=== PATIENT | female | born 1935 | race Caucasian/White ===

== ENCOUNTER → 2017-05-21 | Outpatient (CLI) | payer MEDICARE, OTHER ==
--- NOTE | 2017-05-21 15:28 | WOMENS IMAGING REPORT ---
EXAM DESCRIPTION: 3D SCREENING MAMMO BILAT COMPLETED DATE/TIME: 05/21/2017 1:50 pm REASON FOR STUDY: ROUTINE SCREENING MAMMO Z12.31 ENCNTR SCREEN MAMMOGRAM FOR MALIGNANT NEOPLASM OF HERMES COMPARISON: Multiple since 2008 TECHNIQUE: Standard craniocaudal and mediolateral oblique views of each breast recorded using digita l acquisition and breast tomosynthesis. LIMITATIONS: None. FINDINGS: Findings present which are benign by mammographic criteria. No suspicious masses, calcifi cations or architectural distortion. Pertinent benign findings: Benign coarse dense breast parenchymal calcifications and arterial vascula r calcifications. Stable bilateral breast nodules. Read with the assistance of CAD. .[facility] - R2 Cenova Version 1.3 .[facility] Imaging - R2 Cenova Version 1.3 .[facility] Imaging - R2 Cenova Version 2.4 .[facility] - R2 Cenova Version 2.4 .[facility] - R2 Manager Cable Version 9.2 Benign mammographic findings may include one or more of the following: Smooth masses, popcorn/rim/co arse calcifications, asymmetries, post-procedure changes, and lesions with long-standing stability. IMPRESSION: BENIGN MAMMOGRAPHIC FINDINGS. BIRADS 2 BREAST DENSITY: c. The breasts are heterogeneously dense, which may obscure small masses. BIRAD: 2 BENIGN FINDING(S) RECOMMENDATION: RECOMMENDATION: ROUTINE SCREENING Please continue yearly bilateral screening tomosynthesis in May 2018 COMMENT: The patient has been notified of the results by letter per SA requirements. Additional no tification policies are in place for contacting patient with suspicious or incomplete findings. Quality ID #[id number]: The [employer] recommends an annual screening mammogram for women aged 40 years or over. This facility utilizes a reminder system to ensure that all patients receive reminder letters, and/or direct phone calls for appointments. This includes reminders for routine scr eening mammograms, diagnostic mammograms, or other Breast Imaging Interventions when appropriate. Th is patient will be placed in the appropriate reminder system. The [employer] (ACR) has developed recommendations for screening MRI of the breast s in certain patient populations, to be used in conjunction with mammography. Breast MRI surveillanc e may be appropriate for women with more than 20% lifetime risk of developing breast cancer as deter mined by genetic testing, significant family history of the disease, or history of mantle radiation f or Hodgkins Disease. ACR Practice Guidelines 2008. DBT Technology DBT is a type of tomographic mammography. With conventional mammography, overlapping breast tissue ma y make lesions difficult to detect, even with good compression. DBT uses an x-ray tube that rotates a round the breast, taking images at different angles. These images are then combined to create thin sl ices of the breast that the radiologist can view as a 3D reconstruction. The [employer]ologic unit can perform full-field digital mammograms (2D imaging); or DBT (3D imaging); or both, in a combination mode that quickly performs both the mammogram and the tomosynthesis scan while the breast is still compressed. PQRS 6045F: Fluoroscopic imaging is not utilized for breast tomosynthesis. TECHNICAL DOCUMENTATION: FINDING NUMBER: (1) ASSESSMENT: (1) JOB ID: [id number] [employer]- All Rights Reserved
== END ==
LOC: WI 11:03
PROVIDERS: ATTEND Advanced Practice Midwife
DX: Z12.31 Encounter for screening mammogram for malignant neoplasm of breast (principal)
CPT/HCPCS: 77063; G0202; 77067

== ENCOUNTER 2017-08-29 16:30 | Emergency (ER) | payer MEDICARE, OTHER ==
--- NOTE | 2017-08-29 16:39 | ER Document Report ---
ED General - General Stated Complaint: ALTERED MENTAL STATUS Time Seen by Provider: 08/29/17 16:36 Mode of Arrival: Medic Information source: Patient, Relative, Emergency Med Personnel Notes: 82-year-old female presents by EMS due to family's concerns of altered mental status. It is noted patient did not show up for Thanksgiving dinner and when family went to check on her she was not speaking appropriately. Patient herself is alert she is protecting her airway and was brought to room 10 immediately upon arrival to the emergency department TRAVEL OUTSIDE OF THE [place] IN LAST 30 DAYS: No - HPI Onset: Other - Patient has not been seen for 3 days Onset/Duration: Sudden Quality of pain: No pain Severity: Moderate Pain Level: Denies Associated symptoms: Other Exacerbated by: Denies Relieved by: Denies Similar symptoms previously: No Recently seen / treated by doctor: No - Related Data Allergies/Adverse Reactions: No Known Allergies Allergy (Unverified 07/28/12 12:05) Past Medical History - Social History Smoking Status: Never Smoker Cigarette use (# per day): No Chew tobacco use (# tins/day): No Smoking Education Provided: No Family History: Reviewed & Not Pertinent - Past Medical History Cardiac Medical History: Reports: Hx Hypertension Denies: Hx Heart Attack Pulmonary Medical History: Denies: Hx Asthma Neurological Medical History: Denies: Hx Cerebrovascular Accident, Hx Seizures GI Medical History: Denies: Hx Hepatitis, Hx Hiatal Hernia, Hx Ulcer Infectious Medical History: Denies: Hx Hepatitis Past Surgical History: Denies: Hx Hysterectomy, Hx Mastectomy, Hx Open Heart Surgery, Hx Pacemaker Review of Systems - Review of Systems Notes: REVIEW OF SYSTEMS: CONSTITUTIONAL : Denies fever, chills, or sweats. Denies recent illness. EENT: Denies eye, ear, throat, or mouth pain or symptoms. Denies nasal or sinus congestion or discharge. Denies throat, tongue, or mouth swelling or difficulty swallowing. CARDIOVASCULAR: Denies chest pain. Denies palpitations or racing or irregular heart beat. Denies ankle edema. RESPIRATORY: Denies cough, cold, or chest congestion. Denies shortness of breath, difficulty breathing, or wheezing. GASTROINTESTINAL: Denies abdominal pain or distention. Denies nausea, vomiting , or diarrhea. Denies blood in vomitus, stools, or per rectum. Denies black, tarry stools. Denies constipation. GENITOURINARY: Denies difficulty urinating, painful urination, burning, frequency, blood in urine, or discharge. FEMALE GENITOURINARY: Denies vaginal bleeding, heavy or abnormal periods, irregular periods. Denies vaginal discharge or odor. MUSCULOSKELETAL: Denies back or neck pain or stiffness. Denies joint pain or swelling. SKIN: Denies rash, lesions or sores. HEMATOLOGIC : Denies easy bruising or bleeding. LYMPHATIC: Denies swollen, enlarged glands. NEUROLOGICAL: Family notes confusion PSYCHIATRIC: Denies anxiety or stress. Denies depression, suicidal ideation, or homicidal ideation. ALL OTHER SYSTEMS REVIEWED AND NEGATIVE. PHYSICAL EXAMINATION: GENERAL: Well-appearing, well-nourished and in no acute distress. HEAD: Atraumatic, normocephalic. EYES: Pupils equal round and reactive to light, extraocular movements intact, conjunctiva are normal. ENT: Nares patent, oropharynx clear without exudates. Moist mucous membranes. NECK: Normal range of motion, supple without lymphadenopathy LUNGS: Breath sounds clear to auscultation bilaterally and equal. No wheezes rales or rhonchi. HEART: Regular rate and rhythm without murmurs ABDOMEN: Soft, nontender, nondistended abdomen. No guarding, no rebound. No masses appreciated. Female : deferred Musculoskeletal: Normal range of motion, no pitting or edema. No cyanosis. NEUROLOGICAL: Cranial nerves grossly intact. Normal speech except intermittently patient will say inappropriate words, normal gait. Normal sensory, motor exams PSYCH: Normal mood, normal affect. SKIN: Warm, Dry, normal turgor, no rashes or lesions noted. Dictation was performed using [employer] voice recognition software Physical Exam - Vital signs Vitals: Pulse Ox 97 08/29/17 16:41 Course - Re-evaluation Re-evalutation: 08/29/17 16:39 Based on EMSs concern of altered mental status, patient was immediately taken to CT where a intracranial bleed was noted, I am awaiting to bring the patient back to the room as I can further evaluate her 08/29/17 16:49 I was notified that neurology is read agreed with my initial assessment of a frontal bleed, it is noted is a left frontal parenchymal 4 x 3.5 cm bleed explained ot patient, she requests [facility] for transfer 08/29/17 16:55 [facility] paged 08/29/17 17:29 Dr Kina montalvo accepted to the ICU , requests nicardipine drip for pressure control 08/29/17 17:30 08/29/17 17:32 08/29/17 19:44 Patient has been reevaluated stable no distress will be transferred at this time - Vital Signs Vital signs: Temp Pulse Resp BP Pulse Ox 75 21 H 130/76 H 100 08/29/17 18:00 08/29/17 20:19 08/29/17 20:19 08/29/17 20:19 - Laboratory Result Diagrams: 08/29/17 16:50 08/29/17 16:50 Laboratory results interpreted by me: 08/29/17 16:50 Direct Bilirubin 0.5 H - Diagnostic Test Radiology reviewed: Image reviewed, Reports reviewed Critical Care Note - Critical Care Note Total time excluding time spent on procedures (mins): 45 Comments: 45 minutes of critical care time spent in direct contact evaluating and reevaluating the patient, treating symptoms, reviewing labs and studies and speaking with family and consultants excluding any procedures Discharge - Discharge Clinical Impression: Intraparenchymal hemorrhage of brain Condition: Stable Disposition: [facility]
--- NOTE | 2017-08-29 16:56 | RADIOLOGY REPORT (SQ) ---
EXAM DESCRIPTION: CT HEAD WITHOUT COMPLETED DATE/TIME: 08/29/2017 4:41 pm REASON FOR STUDY: STROKE-LIKE SYMPTOMS COMPARISON: None. TECHNIQUE: Axial images acquired through the brain without intravenous contrast. Images reviewed wi th bone, brain and subdural windows. Images stored on PACS. All CT scanners at this facility use dose modulation, iterative reconstruction, and/or weight based d osing when appropriate to reduce radiation dose to as low as reasonably achievable (ALARA). [facility]: Dose Right [facility]: CareDose [facility]: Dose Right [facility]: Teradose 4D [facility]: Smart Technologies RADIATION DOSE: 64 mGy. LIMITATIONS: None. FINDINGS: VENTRICLES: Normal size and contour. CEREBRUM: A left frontal white matter acute parenchymal hemorrhage is present measuring about 4 x 3.5 cm in size. No subarachnoid or intraventricular extension. Mild local mass effect, very mild left- to-right frontal midline shift. Elsewhere in the cerebrum, there are multiple areas chronic white matter disease with low attenuation in the bifrontal and biparietal white matter and bilateral basal ganglia and thalami. CEREBELLUM: No masses. No hemorrhage. No alteration of density. No evidence for acute infarction. EXTRAAXIAL SPACES: No fluid collections. No masses. ORBITS AND GLOBE: No intra- or extraconal masses. Post cataract surgery. CALVARIUM: No fracture. PARANASAL SINUSES: Small bilateral maxillary sinus mucus or serous retention cysts. SOFT TISSUES: No mass or hematoma. OTHER: No other significant finding. IMPRESSION: Acute left frontal white matter parenchymal hemorrhage 4 x 3.5 cm in size. Mild local m ass effect. No subarachnoid or intraventricular extension. EVIDENCE OF ACUTE STROKE: Yes acute hemorrhagic infarct COMMENT: Pertinent findings on the imaging study reported as a CRITICAL RESULT to Dr. Dickinson at16: 42 on 08/29/2017. Category of Critical Result: Acute left frontal parenchymal hemorrhage Quality ID # [id number]: Final reports with documentation of one or more dose reduction techniques (e.g., Au tomated exposure control, adjustment of the mA and/or kV according to patient size, use of iterative reconstruction technique) TECHNICAL DOCUMENTATION: JOB ID: [id number] [employer]- All Rights Reserved
--- NOTE | 2017-08-29 17:03 | RADIOLOGY REPORT (SQ) ---
EXAM DESCRIPTION: CHEST SINGLE VIEW COMPLETED DATE/TIME: 08/29/2017 4:42 pm REASON FOR STUDY: STROKE-LIKE SYMPTOMS COMPARISON: None. EXAM PARAMETERS: NUMBER OF VIEWS: One view. TECHNIQUE: Single frontal radiographic view of the chest acquired. RADIATION DOSE: NA LIMITATIONS: None. FINDINGS: LUNGS AND PLEURA: No opacities, masses or pneumothorax. No pleural effusion. MEDIASTINUM AND HILAR STRUCTURES: No masses. Contour normal. HEART AND VASCULAR STRUCTURES: Mild cardiomegaly. BONES: No acute findings. HARDWARE: None in the chest. OTHER: No other significant finding. IMPRESSION: Mild cardiomegaly. No acute findings TECHNICAL DOCUMENTATION: JOB ID: [id number] [employer]- All Rights Reserved
[2017-08-29 17:15] LABS: ABSOLUTE LYMPHOCYTES (AUTO) 1.3 10^3/uL (0.5-4.7); ABSOLUTE MONOCYTES (AUTO) 0.5 10^3/uL (0.1-1.4); BASOPHILS % (AUTO) 0.3 % (0-2); EOSINOPHILS % (AUTO) 0.1 % (0-6); HEMATOCRIT 36.9 % (36.0-47.0); HEMOGLOBIN 12.4 g/dL (12.0-15.5); HGB HCT DIFFERENCE 0.3; LYMPHOCYTES % (AUTO) 18.6 % (13-45); MEAN CORPUSCULAR HGB CONC 33.6 g/dL (32.0-36.0); MEAN CORPUSCULAR VOLUME 95 fl (80-97); MONOCYTES % (AUTO) 7.8 % (3-13); RED BLOOD COUNT 3.88 10^6/uL (3.72-5.28); RED CELL DISTRIBUTION WIDTH 13.5 % (11.5-14.0); SEGMENTED NEUTROPHILS % (AUTO) 73.2 % (42-78); WHITE BLOOD COUNT 6.8 10^3/uL (4.0-10.5)
[2017-08-29 17:16] LABS: PROTHROMBIN TIME 13.2 SEC (11.4-15.4)
[2017-08-29 17:17] LABS: PARTIAL THROMBOPLASTIN TIME 25.1 SEC (23.5-35.8)
[2017-08-29 17:29] LABS: ALANINE AMINOTRANSFERASE 27 U/L (9-52); ALBUMIN 4.2 g/dL (3.5-5.0); ALKALINE PHOSPHATASE 58 U/L (38-126); ANION GAP 15 (5-19); ASPARTATE AMINO TRANSFERASE 30 U/L (14-36); BILIRUBIN,DIRECT 0.5 mg/dL (0.0-0.4); BILIRUBIN,TOTAL 1.1 mg/dL (0.2-1.3); BLOOD UREA NITROGEN 15 mg/dL (7-20); CALCIUM 9.2 mg/dL (8.4-10.2); CARBON DIOXIDE 23 mmol/L (22-30); CHLORIDE 104 mmol/L (98-107); CREATINE KINASE 82 U/L (30-135); CREATININE RESULT 0.82 mg/dL (0.52-1.25); GLUCOSE 98 mg/dL (75-110); POTASSIUM 4.3 mmol/L (3.6-5.0); SODIUM 142.4 mmol/L (137-145); TOTAL PROTEIN 6.8 g/dL (6.3-8.2)
[2017-08-29] MEDS ORDERED: NICARDIPINE HCL RTU, ISO-OS 20 MG/200 ML RTUINJ IV PRN (17:31)
[2017-08-29 17:41] LABS: CREATINE KINASE MB 1.22 ng/mL (<4.55)
[2017-08-29 17:43] LABS: TROPONIN I < 0.012 ng/mL
[2017-08-29 19:37] VITALS: BP 130/76
--- NOTE | 2017-08-30 14:38 | EKG REPORT ---
SEVERITY:- ABNORMAL ECG - SINUS RHYTHM LEFT ATRIAL ABNORMALITY : Confirmed by: Ghazala Ivy MD 30-Aug-2017 14:37:42
== END 2017-08-29 19:55 | disposition short-term general hospital (02) ==
LOC: ER 16:30
DX: I61.8 Other nontraumatic intracerebral hemorrhage (principal); R41.82 Altered mental status, unspecified
CPT/HCPCS: 93005; 99291; 96365; 96366; 36415; 82553; 82962; 82550; 85025; 85610; 85730; 80053; 84484; 71010; 70450; 93010; J3490

== ENCOUNTER → 2018-11-11 | Outpatient (CLI) | payer MEDICARE, OTHER, MEDICAID ==
--- NOTE | 2018-11-11 11:41 | WOMENS IMAGING REPORT ---
EXAM DESCRIPTION: 3D SCREENING MAMMO BILAT COMPLETED DATE/TIME: 11/11/2018 11:09 am REASON FOR STUDY: ROUTINE 3D BILATERAL SCREENING,Z12.31 Z12.31 ENCNTR SCREEN MAMMOGRAM FOR MALIGNAN T NEOPLASM OF HERMES COMPARISON: [id number] TECHNIQUE: Standard craniocaudal and mediolateral oblique views of each breast recorded using digita l acquisition and breast tomosynthesis. LIMITATIONS: None. FINDINGS: Findings present which are benign by mammographic criteria. No suspicious masses, calcifi cations or architectural distortion. Pertinent benign findings: Stable calcifications. Read with the assistance of CAD. .[facility] - R2 Cenova Version 1.3 .[facility] Imaging - R2 Cenova Version 2.1 .[facility] Imaging - R2 Cenova Version 2.4 .[facility] - R2 Cenova Version 2.4 .[facility] - R2 Skip Loader Version 9.2 Benign mammographic findings may include one or more of the following: Smooth masses, popcorn/rim/co arse calcifications, asymmetries, post-procedure changes, and lesions with long-standing stability. IMPRESSION: BENIGN MAMMOGRAPHIC FINDINGS. BIRADS 2 BREAST DENSITY: b. There are scattered areas of fibroglandular density. BIRAD: 2 BENIGN FINDING(S) RECOMMENDATION: RECOMMENDATION: ROUTINE SCREENING COMMENT: The patient has been notified of the results by letter per SA requirements. Additional no tification policies are in place for contacting patient with suspicious or incomplete findings. Quality ID #[id number]: The [employer] recommends an annual screening mammogram for women aged 40 years or over. This facility utilizes a reminder system to ensure that all patients receive reminder letters, and/or direct phone calls for appointments. This includes reminders for routine scr eening mammograms, diagnostic mammograms, or other Breast Imaging Interventions when appropriate. Th is patient will be placed in the appropriate reminder system. The [employer] (ACR) has developed recommendations for screening MRI of the breast s in certain patient populations, to be used in conjunction with mammography. Breast MRI surveillanc e may be appropriate for women with more than 20% lifetime risk of developing breast cancer as deter mined by genetic testing, significant family history of the disease, or history of mantle radiation f or Hodgkins Disease. ACR Practice Guidelines 2008. DBT Technology DBT is a type of tomographic mammography. With conventional mammography, overlapping breast tissue ma y make lesions difficult to detect, even with good compression. DBT uses an x-ray tube that rotates a round the breast, taking images at different angles. These images are then combined to create thin sl ices of the breast that the radiologist can view as a 3D reconstruction. The [employer] unit can perform full-field digital mammograms (2D imaging); or DBT (3D imaging); or both, in a combination mode that quickly performs both the mammogram and the tomosynthesis scan while the breast is still compressed. PQRS 6045F: Fluoroscopic imaging is not utilized for breast tomosynthesis. TECHNICAL DOCUMENTATION: FINDING NUMBER: (1) ASSESSMENT: (1) JOB ID: [id number] [employer]- All Rights Reserved Reading location - IP/workstation name: [email or web address]
== END ==
LOC: WI 10:41
PROVIDERS: ATTEND Advanced Practice Midwife
DX: Z12.31 Encounter for screening mammogram for malignant neoplasm of breast (principal)
CPT/HCPCS: 77063; 77067

== ENCOUNTER 2019-10-05 11:04 | Inpatient (IN) | payer MEDICARE, OTHER, MEDICAID ==
[2019-10-05] MEDS ORDERED: ROCURONIUM BROMIDE INJ 50 MG/5 ML VIAL IV ONE (11:22)
[2019-10-05] MEDS ORDERED: ETOMIDATE INJ/PF 20 MG/10 ML SDV IV ONE (11:23)
[2019-10-05] MEDS ORDERED: MIDAZOLAM HCL 50 MG/100 ML RTUINJ IV PRN (11:23)
--- NOTE | 2019-10-05 11:32 | ER Document Report ---
ED Resuscitation - General Chief Complaint: Unresponsive Stated Complaint: UNRESPONSIVE Information source: Relative, Emergency Med Personnel Notes: Ms. Fernandez is a 84 yo f w/ PMH hypertension, hyperlipidemia, previous ICH 2 years ago on brought in by EMS from [facility]. Per family, they spoke to the patient yesterday evening and she was completely normal on the phone. This morning, her son went over to see her and found her unresponsive, gurgling breath sounds on the floor in the kitchen. Unknown downtime. Garrett koenig's family states that the patient had a spontaneous ICH 2 years ago on from which she recovered. She is not on known blood thinners but does take what they believe is a baby aspirin daily. Patient also recently fell and had R ankle surgery approximately 9 weeks ago and was just discharged from rehab on Saturday. TRAVEL OUTSIDE OF THE U.S. IN LAST 30 DAYS: No - Related Data Allergies/Adverse Reactions: No Known Allergies Allergy (Unverified 07/28/12 12:05) Past Medical History - Social History Smoking Status: Unknown if Ever Smoked Family History: Reviewed & Not Pertinent - Past Medical History Cardiac Medical History: Reports: Hx Hypertension Denies: Hx Heart Attack Pulmonary Medical History: Denies: Hx Asthma Neurological Medical History: Denies: Hx Cerebrovascular Accident, Hx Seizures Renal/ Medical History: Denies: Hx Peritoneal Dialysis GI Medical History: Denies: Hx Hepatitis, Hx Hiatal Hernia, Hx Ulcer Infectious Medical History: Denies: Hx Hepatitis Past Surgical History: Denies: Hx Hysterectomy, Hx Mastectomy, Hx Open Heart Surgery, Hx Pacemaker Review of Systems - Review of Systems -: Yes ROS unobtainable due to patient's medical condition Physical Exam - Vital signs Vitals: Resp 23 H 10/05/19 11:06 Interpretation: Hypertensive, Tachypneic, Other - hypothermic - General General appearance: Unresponsive In distress: Moderate - HEENT Head: Normocephalic, Atraumatic Eyes: Normal Extraocular movements intact: No Pupils: PERRL - 3mm, round and sluggishly reactive Mucous membranes: Dry - Respiratory Respiratory status: Agonal respirations - gurgling respirations, Tachypnea Breath sounds: Normal Chest palpation: Normal - Cardiovascular Rhythm: Regular Heart sounds: Normal auscultation Murmur: No - Abdominal Inspection: Normal Distension: No distension Bowel sounds: Normal Organomegaly: No organomegaly - Back Back: Normal. No: Deformity/step-off - Extremities General upper extremity: Normal inspection, Normal color General lower extremity: Normal inspection, Normal color. No: Anselmo's sign - Neurological Neuro grossly intact: No Orientation: Disoriented to person Supa Coma Scale Eye Opening: None Supa Coma Scale Verbal: None [place] Coma Scale Motor: None Supa Coma Scale Total: 3 Speech: Other - unresponsive - Skin Skin Temperature: Cool Skin Moisture: Dry Skin Color: Normal Course - Re-evaluation Re-evalutation: Patient found unresponsive in her home. Initial vitals notable for significantly elevated blood pressure, hypothermia and tachypnea. Differential diagnosis includes ICH, head trauma, hypoglycemia, ACS, sepsis 10/05/19 11:39 Patient had GCS of 3 and was unable to protect her airway therefore she was intubated with conscious sedation of rocuronium and etomidate. Please see procedure note for further notes. 10/05/19 11:49 CT shows evidence of a large intraparenchymal hemorrhage, I personally read at the bedside while the patient was in CT. I updated the patient's family regarding this. Per son, the patient also had a spontaneous ICH 2 years ago on Thanksgiving. At that point in time, she was confused and unable to move her arm. CBC does not show significant leukocytosis or left shift. H&H is stable. Initial lactate is normal at 1.3. CMP notable for elevated potassium at 5.2. Glucose is also elevated at 187. Initial troponin is negative. EKG nonischemic. 10/05/19 11:52 Natty from transfer center called to attempt possible transfer for neurosurgical evaluation. 10/05/19 11:59 Received call from radiology. Patient has R large intraparenchymal hemorrhage extending into the ventricular system. Patient also has subfalacine shift 1.2 cm. 10/05/19 11:59 Call back from transfer center. NSG paged, calling neurology too. 10/05/19 12:08 Dr. Dubois, neurology on phone, feels that this a catastrophic head bleed and recommends palliative care. Patient is not a candidate for any surgical intervention. Will discuss with family. If family insistent on transfer, will accept to ICU, but no further intervention will be offered. 10/05/19 12:29 Discussed at plan of care and recommendations by Declan Zelaya for palliation and comfort care. Discussed 10/05/19 12:32 Called clicking machine operator for cloud administrator admission. 10/05/19 12:41 Spoke to vikash Irby regarding admission to the ICU and plan of palliation. Requested that DNR form be initiated. Will do that now. 10/05/19 13:10 I personally discussed the DNR paperwork with the patient's daughter and son. I signed the paperwork in their presence. - Vital Signs Vital signs: Temp Pulse Resp BP Pulse Ox 97.9 F 84 12 164/94 H 100 10/05/19 15:10 10/05/19 15:10 10/05/19 15:10 10/05/19 15:10 10/05/19 15:10 - Laboratory Result Diagrams: 10/05/19 11:15 10/05/19 11:15 Laboratory results interpreted by me: 10/05/19 10/05/19 10/05/19 11:15 11:15 11:15 RBC 3.46 L Hgb 11.7 L Hct 34.5 L MCV 100 H MCH 33.7 H RDW 15.5 H Potassium 5.2 H Glucose 187 H AST 56 H NT-Pro-B Natriuret Pep 570 H Procedures - Intubation Orotracheal Airway evaluation: Normal anatomy, Neck immobility Mallampati Classification: Class 2 Medications: Etomidate, Other - Rocuronium Intubation method: Orotracheal Blade type: Genoveva, Other - Video-assisted Blade size: 3 Equipment used: Glidescope ETT size: 7.0 ETT secured at: Teeth ETT secured at (cm): 18 Breath Sounds after Intubation: Equal End tidal CO2 confirmed: Yes Ventilator settings: AC Tidal volume: 400 FiO2: 100 Respirations: 16 PEEP: 5 Post Intubation Xray: Yes Intubation Complications: No complications Critical Care Note - Critical Care Note Total time excluding time spent on procedures (mins): 125 - Patient was critically ill and required numerous re-evaluations. Discussion with multiple consultants including transfer center for possible transfer as well as ICU physicians here at [facility]. Discussion with specialist including neurology. Patient required antihypertensives to control her blood pressure and IV fluids. Patient also required sedation and intubation, separate from the critical care time in order to protect her airway given the significant ICH and her inability to protect her airway. Discharge - Discharge Clinical Impression: Intraparenchymal hemorrhage of brain, Unresponsive state, HTN (hypertension) Condition: Critical Disposition: ADMITTED INPATIENT Admitting Provider: Jose ([facility]) Unit Admitted: ICU
[2019-10-05 11:42] LABS: ABSOLUTE BASOPHILS # (AUTO) 0.1 10^3/uL (0.0-0.2); ABSOLUTE EOSINOPHILS # (AUTO) 0.2 10^3/uL (0.0-0.6); ABSOLUTE LYMPHOCYTES (AUTO) 1.8 10^3/uL (0.5-4.7); ABSOLUTE MONOCYTES (AUTO) 0.5 10^3/uL (0.1-1.4); ABSOLUTE NEUT (AUTO) 7.6 10^3/uL (1.7-8.2); BASOPHILS % (AUTO) 0.8 % (0-2); EOSINOPHILS % (AUTO) 1.7 % (0-6); HEMATOCRIT 34.5 % (36.0-47.0); HEMOGLOBIN 11.7 g/dL (12.0-15.5); LYMPHOCYTES % (AUTO) 17.8 % (13-45); MEAN CORPUSCULAR HEMOGLOBIN 33.7 pg (27.0-33.4); MEAN CORPUSCULAR HGB CONC 33.8 g/dL (32.0-36.0); MEAN CORPUSCULAR VOLUME 100 fl (80-97); MONOCYTES % (AUTO) 4.9 % (3-13); PLATELET COUNT 307 10^3/uL (150-450); RED BLOOD COUNT 3.46 10^6/uL (3.72-5.28); RED CELL DISTRIBUTION WIDTH 15.5 % (11.5-14.0); SEGMENTED NEUTROPHILS % (AUTO) 74.8 % (42-78); TOTAL CELLS COUNTED % (AUTO) 100 %; WHITE BLOOD COUNT 10.2 10^3/uL (4.0-10.5)
[2019-10-05] MEDS ORDERED: FENTANYL CITRATE/PF 600 MCG/60 ML BAG IV PRN (11:45)
--- NOTE | 2019-10-05 11:59 | RADIOLOGY REPORT (SQ) ---
EXAM DESCRIPTION: CT CERVICAL SPINE WITHOUT COMPLETED DATE/TIME: 10/05/2019 11:47 am REASON FOR STUDY: found down COMPARISON: None. TECHNIQUE: Axial images acquired through the cervical spine without intravenous contrast. Images re viewed with lung, soft tissue and bone windows. Reconstructed coronal and sagittal MPR images review ed. Images stored on PACS. All CT scanners at this facility use dose modulation, iterative reconstruction, and/or weight based d osing when appropriate to reduce radiation dose to as low as reasonably achievable (ALARA). [facility]: Dose Right [facility]: CareDose [facility]: Dose Right [facility]: Teradose 4D [facility]: [employer] RADIATION DOSE: CT Rad equipment meets quality standard of care and radiation dose reduction techniq ues were employed. CTDIvol: 7.6 mGy. DLP: 159 mGy-cm. mGy. LIMITATIONS: None. FINDINGS: ALIGNMENT: Anatomic. MINERALIZATION: Normal. VERTEBRAL BODIES: No fractures or dislocation. DISCS: Multilevel disc space narrowing with osteophytes. FACETS, LATERAL MASSES, POSTERIOR ELEMENTS: Facet arthropathy. No fractures. No dislocation. No ac galena findings. HARDWARE: None in the spine. VISUALIZED RIBS: No fractures. LUNG APICES AND SOFT TISSUES: No significant or acute findings. OTHER: No other significant finding. IMPRESSION: CHRONIC DEGENERATIVE CHANGES. NO ACUTE FINDINGS. TECHNICAL DOCUMENTATION: JOB ID: [id number] Quality ID # [id number]: Final reports with documentation of one or more dose reduction techniques (e.g., Au tomated exposure control, adjustment of the mA and/or kV according to patient size, use of iterative reconstruction technique) 2010 [employer]- All Rights Reserved Reading location - IP/workstation name: [email or web address]
--- NOTE | 2019-10-05 12:04 | RADIOLOGY REPORT (SQ) ---
EXAM DESCRIPTION: CT HEAD WITHOUT COMPLETED DATE/TIME: 10/05/2019 11:47 am REASON FOR STUDY: unresponsive COMPARISON: 08/29/2017. TECHNIQUE: Axial images acquired through the brain without intravenous contrast. Images reviewed wi th bone, brain and subdural windows. Additional sagittal and coronal reconstructions were generated. Images stored on PACS. All CT scanners at this facility use dose modulation, iterative reconstruction, and/or weight based d osing when appropriate to reduce radiation dose to as low as reasonably achievable (ALARA). [facility]: Dose Right [facility]: CareDose [facility]: Dose Right [facility]: Teradose 4D [facility]: [employer] RADIATION DOSE: CT Rad equipment meets quality standard of care and radiation dose reduction techniq ues were employed. CTDIvol: 53.2 mGy. DLP: 1124 mGy-cm.mGy. LIMITATIONS: None. FINDINGS: VENTRICLES: Blood in the ventricular system. CEREBRUM: Extensive parenchymal hemorrhage involving a large portion of the right frontal and parieta l lobe. Subfalcine shift, right to left, of 12 mm. Areas of low density in the white matter most li tiana due to chronic micro-vascular ischemic chain. CEREBELLUM: No masses. No hemorrhage. No alteration of density. No evidence for acute infarction. EXTRAAXIAL SPACES: Age-related involutional change. No fluid collections. No masses. ORBITS AND GLOBE: No intra- or extraconal masses. Normal contour of globe without masses. CALVARIUM: No fracture. PARANASAL SINUSES: No fluid or mucosal thickening. SOFT TISSUES: No mass or hematoma. OTHER: No other significant finding. IMPRESSION: EXTENSIVE PARENCHYMAL HEMORRHAGE IN THE RIGHT CEREBRAL HEMISPHERE. THERE IS BLOOD IN TH E VENTRICULAR SYSTEM. EVIDENCE OF ACUTE STROKE: NO. COMMENT: Pertinent findings on the imaging study reported as a CRITICAL RESULT to WALDEMAR Moser at11:56 on 10/05/2019. Category of Critical Result: Cerebral hemorrhage. TECHNICAL DOCUMENTATION: JOB ID: [id number] Quality ID # [id number]: Final reports with documentation of one or more dose reduction techniques (e.g., Au tomated exposure control, adjustment of the mA and/or kV according to patient size, use of iterative reconstruction technique) 2010 [employer]- All Rights Reserved Reading location - IP/workstation name: [email or web address]
[2019-10-05 12:06] LABS: ALBUMIN 4.2 g/dL (3.5-5.0); ALKALINE PHOSPHATASE 87 U/L (38-126); ANION GAP 12 (5-19); ASPARTATE AMINO TRANSFERASE 56 U/L (14-36); BILIRUBIN,DIRECT 0.3 mg/dL (0.0-0.4); BILIRUBIN,TOTAL 0.7 mg/dL (0.2-1.3); BLOOD UREA NITROGEN 15 mg/dL (7-20); CALCIUM 9.3 mg/dL (8.4-10.2); CARBON DIOXIDE 26 mmol/L (22-30); CHLORIDE 106 mmol/L (98-107); CREATINE KINASE 80 U/L (30-135); GLUCOSE 187 mg/dL (75-110); POTASSIUM 5.2 mmol/L (3.6-5.0); TOTAL PROTEIN 7.8 g/dL (6.3-8.2)
[2019-10-05] MEDS ORDERED: LABETALOL HCL INJ 20 MG/4 ML DISP.SYRIN IV ONE (12:06)
--- NOTE | 2019-10-05 12:07 | RADIOLOGY REPORT (SQ) ---
EXAM DESCRIPTION: CHEST SINGLE VIEW COMPLETED DATE/TIME: 10/05/2019 11:46 am REASON FOR STUDY: intubation COMPARISON: None. EXAM PARAMETERS: NUMBER OF VIEWS: One view. TECHNIQUE: Single frontal radiographic view of the chest acquired. RADIATION DOSE: NA LIMITATIONS: None. FINDINGS: LUNGS AND PLEURA: No opacities, masses or pneumothorax. No pleural effusion. MEDIASTINUM AND HILAR STRUCTURES: No masses. Contour normal. HEART AND VASCULAR STRUCTURES: Heart normal in size. Normal vasculature. BONES: No acute findings. Degenerative changes in the right shoulder. HARDWARE: Endotracheal tube, tip located 4.5 cm proximal to the dominic. OTHER: No other significant finding. IMPRESSION: ENDOTRACHEAL TUBE APPEARS TO BE IN SATISFACTORY POSITION. NO ACUTE RADIOGRAPHIC FINDING IN THE CHEST. TECHNICAL DOCUMENTATION: JOB ID: [id number] [employer]- All Rights Reserved Reading location - IP/workstation name: [email or web address]
[2019-10-05 12:16] LABS: CREATINE KINASE MB 0.98 ng/mL (<4.55); NT PRO BNP 570 pg/mL (<450)
[2019-10-05 12:39] LABS: TROPONIN I < 0.012 ng/mL
--- NOTE | 2019-10-05 13:16 | EKG REPORT ---
SEVERITY:- BORDERLINE ECG - SINUS RHYTHM PROBABLE LEFT ATRIAL ABNORMALITY : Confirmed by: Jb Melara MD 05-Oct-2019 13:15:51
[2019-10-05 14:55] VITALS: BP 164/94
[2019-10-05] MEDS ORDERED: MORPHINE SULFATE 10 MG/ML INJ IV PRN (15:45)
[2019-10-05] MEDS ORDERED: LORAZEPAM INJ 2 MG/1 ML VIAL IV PRN (15:49)
--- NOTE | 2019-10-05 16:01 | CRITICAL CARE ADMISSION REPORT ---
HPI Date:: 10/05/19 Time:: 15:54 Reason for ICU Reason:: Intracranial bleed HPI: Pt is a 84 yo woman with HTN, intracranial bleed, who was found unresonspive by her son at home today. Pt was intubated in the ED.Head CT revealed large right parenchymal bleed bleed with intraventricular extension. The ED physician spoke with the neurologist at [facility] and it was determined that this was a catastrophic bleed and a terminal event and that no neurosurgical intervention is warranted. The family made the pt DNR. She was admitted to the ICU. I spoke with the family and they have decided to withdraw care. Past Medical History Cardiac Medical History: Reports: Hyperlipidema, Hypertension Denies: Myocardial Infarction Pulmonary Medical History: Denies: Asthma Neurological Medical History: Denies: Seizures GI Medical History: Denies: Hepatitis, Hiatal Hernia Hematology: Denies: Anemia, Sickle Cell Disease Past Surgical History Past Surgical History: Denies: Amputation, Hysterectomy, Mastectomy, Pacemaker Social/Family History - Social History Smoking Status: Unknown if Ever Smoked - Medication/Allergies Home Medications: Co Q-10 100 mg Softgel 07/28/12 Risedronate Sodium [Actonel 150 mg Tablet] 150 mg PO DAILY 07/28/12 Rosuvastatin Calcium [Crestor 5 mg Tablet] 5 mg PO DAILY 07/28/12 Valsartan [Diovan 80 mg Tablet] 80 mg PO DAILY 07/28/12 Aspirin [Aspirin 325 mg Tablet] 325 mg PO 08/04/12 Allergies/Adverse Reactions: No Known Allergies Allergy (Unverified 07/28/12 12:05) Review of Systems ROS unobtainable: Due to mental status Physical Exam Vital Signs: Temp Pulse Resp BP Pulse Ox 97.9 F 84 12 164/94 H 100 10/05/19 15:10 10/05/19 15:10 10/05/19 15:10 10/05/19 15:10 10/05/19 15:10 Intake & Output 10/04/19 10/05/19 10/06/19 06:59 06:59 06:59 Intake Total 1 Output Total 415 Balance -414 Weight 44.4 kg Weight/Height Weight 44.4 kg Height 5 ft 2 in General appearance: PRESENT: no acute distress, thin - comatose, well-developed, well-nourished, other Head exam: PRESENT: atraumatic, normocephalic Respiratory exam: PRESENT: clear to auscultation karli, unlabored Cardiovascular exam: PRESENT: RRR Neurological exam: PRESENT: other - comatose Laboratory/Radiographs Laboratory Results: 10/05/19 11:15 10/05/19 11:15 10/05/19 10/05/19 10/05/19 11:15 11:15 11:15 WBC 10.2 RBC 3.46 L Hgb 11.7 L Hct 34.5 L MCV 100 H MCH 33.7 H MCHC 33.8 RDW 15.5 H Plt Count 307 Seg Neutrophils % 74.8 Sodium 143.5 Potassium 5.2 H Chloride 106 Carbon Dioxide 26 Anion Gap 12 BUN 15 Creatinine 0.76 Est GFR ( Amer) > 60 Glucose 187 H Lactic Acid 1.3 Calcium 9.3 Total Bilirubin 0.7 AST 56 H Alkaline Phosphatase 87 Total Protein 7.8 Albumin 4.2 10/05/19 10/05/19 11:15 11:15 Creatine Kinase 80 CK-MB (CK-2) 0.98 Troponin I < 0.012 NT-Pro-B Natriuret Pep 570 H Impressions: Head CT 10/05/19 00:00 IMPRESSION: EXTENSIVE PARENCHYMAL HEMORRHAGE IN THE RIGHT CEREBRAL HEMISPHERE. THERE IS BLOOD IN THE VENTRICULAR SYSTEM. EVIDENCE OF ACUTE STROKE: NO. Cervical Spine CT 10/05/19 11:19 IMPRESSION: CHRONIC DEGENERATIVE CHANGES. NO ACUTE FINDINGS. Chest X-Ray 10/05/19 11:24 IMPRESSION: ENDOTRACHEAL TUBE APPEARS TO BE IN SATISFACTORY POSITION. NO ACUTE RADIOGRAPHIC FINDING IN THE CHEST. All labs, radiographs, diagnostic studies and EKGs were personally reviewed: Yes Critical Time Critical Time (minutes): 20 -: The care of a critically ill patient is dynamic. This note represents a static moment in the admission process. Orders and treatments may be given simultaneously and urgently, and time is not personnel representative of the treatment process. This patient requires Critical Care secondary to life threatening organ or limb dysfunction. Without Critical Care services, the patient is at risk for increased mortality and morbidity. Provider Note Provider Note: Assessment: Critically ill 84 yo woman with acute respiratory failure and large right intraparenchymal bleed with intraventricular extension. Plan: Pt is DNR. Family has decided to withdraw care.
--- NOTE | 2019-10-05 18:30 | Death Summary ---
Summary Date : 10/05/19 Time of :: 17:51 Resuscitation Status: Comfort Measures Only - Final Diagnosis (1) Intraparenchymal hemorrhage of brain Is this a current diagnosis for this admission?: Yes Hospital Course:: Pt is a 84 yo woman with HTN, intracranial bleed, who was found unresonspive by her son at home today. Pt was intubated in the ED.Head CT revealed large right parenchymal bleed bleed with intraventricular extension. The ED physician spoke with the neurologist at [facility] and it was determined that this was a catastrophic bleed and a terminal event and that no neurosurgical intervention is warranted. The family made the pt DNR. She was admitted to the ICU.The family withdrew care. Pt was extubated and she at 1751.
== END 2019-10-05 19:43 | disposition left against medical advice (07) | DRG 66 ==
LOC: ER 11:04 → EH 12:52 → ICU 14:41
PROVIDERS: ADMIT Internal Medicine; ATTEND Internal Medicine
PROC: 0BH17EZ Insertion of Endotracheal Airway into Trachea, Via Natural or Artificial Opening (ICD-10-PCS; principal; 2019-10-05)
PROC: 5A1935Z Respiratory Ventilation, Less than 24 Consecutive Hours (ICD-10-PCS; 2019-10-05)
DX: I61.5 Nontraumatic intracerebral hemorrhage, intraventricular (principal); R40.2112 Coma scale, eyes open, never, at arrival to emergency department; R40.2212 Coma scale, best verbal response, none, at arrival to emergency department; R40.2312 Coma scale, best motor response, none, at arrival to emergency department; R68.0 Hypothermia, not associated with low environmental temperature; I10 Essential (primary) hypertension; Z86.73 Personal history of transient ischemic attack (TIA), and cerebral infarction without residual deficits; E78.5 Hyperlipidemia, unspecified; Z66 Do not resuscitate; Z51.5 Encounter for palliative care
CPT/HCPCS: 36415; 51702; 70450; 71045; 72125; 80053; 82550; 82553; 83605; 83880; 84484; 85025; 87040; 93005; 93010; 94002; 96365; 96375; 99291; 99292; J2060; J2250; J2270; J3010; J3490